=== PATIENT | female | born 1960 | race Caucasian/White ===

== ENCOUNTER 2019-06-14 13:32 | Outpatient (CLI) | payer OTHER, SELFPAY ==
--- NOTE | ~2019-06-14 | MM_ITS ---
EXAMINATION: MM scrn karina implant BI w neida HISTORY: Screening mammogram TECHNIQUE: Craniocaudal and mediolateral oblique 3-D tomosynthesis images with implant displacement a nd synthetic 2-D images were generated. Craniocaudal and mediolateral oblique views of the breasts wi thout implant displacement were obtained using full field digital mammography. CAD analysis was submi tted and interpreted. COMPARISON: No prior mammogram is available for comparison at this institution. BREAST PARENCHYMAL COMPOSITION: There are scattered areas of fibroglandular density. FINDINGS: Status post bilateral augmentation mammoplasty. Status post right partial mastectomy, with surgical clips in the upper outer quadrant of the right br east. There is no evidence of suspicious mass, calcification, or architectural distortion to suggest malig fadia in either breast. There has been no suspicious interval change. Occasional benign calcification s. IMPRESSION: 1. No mammographic evidence of malignancy. 2. Recommend routine screening mammography in one year. BI-RADS Category 2: Benign finding(s). Reviewed, dictated and finalized at location A. ORK ANALYST
--- NOTE | ~2019-06-14 | US_ITS ---
EXAMINATION: US pelvic complete w TV DATE: 06/14/2019 15:14 INDICATION: Postmenopausal bleeding TECHNIQUE: Multiple transabdominal and endovaginal sonographic images of the pelvis were obtained. COMPARISON: None. FINDINGS: The uterus measures 4.2 x 2.1 x 4.5 cm. The endometrial complex measures 2 mm. The ovaries are not visualized however no adnexal abnormality is seen.There is no free fluid in the pelvis. IMPRESSION: 1. No sonographic correlate for the patient's symptoms. Reviewed, dictated and finalized at location A. ESCENT SPECIALIST
== END 2019-06-14 13:33 | disposition home or self-care (01) ==
PROVIDERS: PCP Family Medicine; Visit Provider Nurse Practitioner
DX: Z12.31 Encounter for screening mammogram for malignant neoplasm of breast (principal); N95.0 Postmenopausal bleeding
CPT/HCPCS: 76830; 76856; 77063; 77067

== ENCOUNTER 2020-11-12 16:22 | Outpatient (CLI) | payer OTHER, SELFPAY ==
--- NOTE | ~2020-11-12 | MM_ITS ---
EXAMINATION: MM scrn karina implant BI w neida HISTORY: Screening mammogram TECHNIQUE: Craniocaudal and mediolateral oblique 3-D tomosynthesis images with implant displacement a nd synthetic 2-D images were generated. Craniocaudal and mediolateral oblique views of the breasts wi thout implant displacement were obtained using full field digital mammography. CAD analysis was submi tted and interpreted. COMPARISON: 06/14/2019, 10/30/2017, 12/24/2015 BREAST PARENCHYMAL COMPOSITION: There are scattered areas of fibroglandular density. FINDINGS: Lumpectomy changes are noted in the upper outer quadrant of the right breast. There is no e vidence of suspicious mass, calcification, or architectural distortion to suggest malignancy in eithe r breast. There has been no suspicious interval change. IMPRESSION: 1. No mammographic evidence of malignancy. 2. Recommend routine screening mammography in one year. BI-RADS Category 2: Benign finding(s). Reviewed, dictated and finalized at location A.
== END 2020-11-12 16:23 | disposition home or self-care (01) ==
LOC: ANHIMG 16:24
PROVIDERS: PCP Family Medicine; Visit Provider Nurse Practitioner
DX: Z12.31 Encounter for screening mammogram for malignant neoplasm of breast (principal)
CPT/HCPCS: 77063; 77067

== ENCOUNTER 2021-03-01 15:37 | Outpatient (CLI) | payer OTHER, SELFPAY ==
--- NOTE | ~2021-03-01 | XR_ITS ---
XR chest 2V DATE: 03/01/2021 16:21 INDICATION: Cough for 6 months. History of breast cancer. TECHNIQUE: PA and lateral views COMPARISON: 05/12/2015 2 view chest 12/2018 CT chest abdomen pelvis FINDINGS: Surgical clips overlie the right axillary area consistent with axillary node dissection. Di minished size of right compared to left breast shadow consistent with right partial mastectomy. Normal heart size. No hilar or mediastinal enlargement. No pulmonary infiltrate or consolidation, pleural effusion or pulmonary vascular congestion or pneumo thorax. Prominent degenerative spurring of the lumbar spine. No suspicious osteolytic or osteoblastic lesions are evident. There is osteopenia. IMPRESSION: Status post right partial mastectomy and axillary node dissection No active cardiopulmonary disease or significant change since 05/12/2015 Reviewed, dictated and finalized at location A.
== END 2021-03-01 15:38 | disposition home or self-care (01) ==
LOC: ANHIMG 15:42
PROVIDERS: PCP Family Medicine; Visit Provider Physician Assistant
DX: R05.9 Cough, unspecified (principal)
CPT/HCPCS: 71046

== ENCOUNTER 2021-09-24 18:50 | Emergency (ER) | payer OTHER, SELFPAY ==
--- NOTE | 2021-09-24 18:56 | ED.DENTAL ---
HPI - Dental/Oral General Chief complaint: Dental/Oral Stated complaint: tooth pain Time Seen by Provider: 09/24/21 18:56 Source: patient Mode of arrival: ambulatory Limitations: no limitations History of Present Illness HPI Narrative: 61-year-old female presents with right lower dental pain since yesterday. Called her dental office today and it is closed for the holiday. Would like to get started on any antibiotic. Denies fever chills no other complaints today. All systems reviewed and negative except as noted above. Related Data Allergies Allergy/AdvReac Type Severity Reaction Status Date / Time No Known Allergies Allergy Verified 03/01/21 14:49 Review of Systems Review of Systems: CONSTITUTIONAL: Denies fever, chills, or sweats. EYES: Denies visual changes, redness, or discharge. ENT: Denies rhinorrhea, congestion, sore throat, or otalgia. Reports right lower dental pain. CARDIOVASCULAR: Denies chest pain, palpitations, or edema. RESPIRATORY: Denies cough or dyspnea. GASTROINTESTINAL: Denies abdominal pain, nausea, vomiting, or diarrhea. GENITOURINARY: Denies dysuria or hematuria. SKIN: Denies rash or itching. MUSCULOSKELETAL: Denies back pain, joint pain, or myalgia. NEUROLOGIC: Denies headache, numbness, or weakness. PSYCHIATRIC: Denies anxiety or depression. All other systems reviewed are negative, except as documented in HPI. [facility] Past Medical History Medical History Anxiety Fracture of right lower extremity History of breast cancer Hyperlipidemia, unspecified Normal colonoscopy (~2019) Surgical History Surgical History H/O breast augmentation H/O dilation and curettage H/O lumpectomy Hx of tonsillectomy S/P right knee arthroscopy Family History Family History Mother Family history of malignant neoplasm of uterus, Onset Age: 35 Father Family history of malignant neoplasm of esophagus Other Carcinoma of colon Cerebrovascular accident Family history of cardiovascular disease Family history of malignant neoplasm Family history of malignant neoplasm of breast Hypertension Social History Social History (Updated 03/01/21 @ 14:52 by Donna Allen CMA) Smoking packs per day: 1 Smoking cigarettes per day: 20.0 Years smoked: 37 Smoking pack-years: 37.00 Smoking status: Former smoker Second hand tobacco smoke exposure: No Smoking end date: 03/01/14 Alcohol intake: never Substance use: current Substance use type: marijuana Other substance usage details: edibles; 2-3xweek for back pain Comments At time of signature, agree with nursing past medical, surgical, social and family history. There is no relevant family history pertinent to the presenting complaint. Exam Narrative: GENERAL: This is a well-nourished, well-developed patient, in no apparent distress. HEAD: normocephalic, atraumatic. EYES: PERRL. Sclera clear/white. Vision is grossly intact. EARS: External ears normal NOSE: External nose normal MOUTH: Tenderness on palpation tooth #29. To the gum area there is a small white area concerning for a dental abscess. Tender on palpation. NECK: Neck supple, non-tender without lymphadenopathy, masses or thyromegaly. CARDIOVASCULAR: Regular rate and rhythm without murmurs, gallops, or rubs. RESPIRATORY: Clear to auscultation. Breath sounds equal bilaterally. No wheezes, rales, or rhonchi. SKIN: warm, Dry, intact with no suspicious lesions or rash, good texture and turgor. NEURO: awake, alert, and oriented to person, place and time. There were no obvious focal neurologic abnormalities. EXTREMITIES: Normal range of motion to all extremities. Course Course Level of Care: Express Care Visit Vital Signs Vital signs: Vital Signs Temperature 36.2 C L 09/24/21 18:57 Pulse Rate 109
[2021-09-24 18:57] VITALS: BP 121/80; PULSE 109; RESP 16; TEMP 36.2; O2SAT 99
== END 2021-09-24 19:15 | disposition home or self-care (01) ==
PROVIDERS: Emergency Provider Nurse Practitioner Family; PCP Family Medicine
DX: K04.7 Periapical abscess without sinus (principal); Z87.891 Personal history of nicotine dependence; F12.90 Cannabis use, unspecified, uncomplicated; E78.5 Hyperlipidemia, unspecified; Z85.3 Personal history of malignant neoplasm of breast
CPT/HCPCS: 99213; G0463

== ENCOUNTER 2022-12-13 11:49 | Outpatient (CLI) | payer OTHER, SELFPAY ==
[2022-12-13 12:13] LABS: Hematocrit 45.4 % (37.0-47.0); Mean Corpuscular Hemoglobin 29.5 pg (26-34); Mean Corpuscular Volume 89.4 fl (80-100); Mean Platelet Volume 9.3 fl (7.4-10.4); Platelet Count Result 274 k/mm3 (150-375); Red Blood Count 5.08 M/mm3 (4.2-5.4); Red Cell Distribution Width 13.8 % (11.5-14.5); White Blood Count 5.3 K/mm3 (4.5-10.0)
[2022-12-13 12:23] LABS: Alanine Aminotransferase 18 U/L (6-35); Albumin Level 4.1 g/dL (3.5-5.1); Alkaline Phosphatase 76 U/L (38-126); Anion Gap 3 mmol/L (8-16); Aspartate Amino Transferase 26 U/L (14-36); Bilirubin,Total 0.5 mg/dL (0.2-1.3); Blood Urea Nitrogen 11 mg/dL (7-17); Calcium 8.8 mg/dL (8.4-10.2); Carbon Dioxide 27 mmol/L (22-30); Chloride 105 mmol/L (98-107); Cholesterol 253 mg/dL (0-200); Estimated Glomerular Filt Rate > 60; Glucose 99 mg/dL (65-110); HDL Direct 45 mg/dL; Potassium 4.2 mmol/L (3.4-5.0); Sodium 135 mmol/L (137-145); Triglycerides 281 mg/dL (<150)
[2022-12-13 12:34] LABS: LDL Cholesterol Direct 122 mg/dL
[2022-12-13 13:20] LABS: Free T4 Free Thyroxine 1.11 ng/mL (0.78-2.19)
[2022-12-16 23:29] LABS: Vitamin D 1,25 (OH)2 Total 24 pg/mL (18-72); Vitamin D2 1,25 (OH)2 <8 pg/mL; Vitamin D3 1,25 (OH)2 24 pg/mL
== END 2022-12-13 11:50 | disposition home or self-care (01) ==
LOC: ANHLAB 11:50
PROVIDERS: PCP Family Medicine; Visit Provider Physician Assistant
DX: R53.83 Other fatigue (principal); E78.5 Hyperlipidemia, unspecified; Z13.220 Encounter for screening for lipoid disorders; D64.9 Anemia, unspecified; Z13.1 Encounter for screening for diabetes mellitus; E55.9 Vitamin D deficiency, unspecified
CPT/HCPCS: 36415; 80053; 80061; 82652; 84439; 84443; 85027

== ENCOUNTER 2022-12-15 14:40 | Outpatient (CLI) | payer OTHER, SELFPAY ==
--- NOTE | ~2022-12-15 | CT_ITS ---
EXAMINATION: CT brain wo con DATE: 12/15/2022 14:54 INDICATION: R51.9 - Headache, unspecified . TECHNIQUE: Computed tomography (CT) of the head was performed without intravenous contrast. The mA wa s adjusted according to patient size. Iterative reconstruction technique was employed. The dose-lengt h product was 681.00 mGy-cm. COMPARISON: 05/12/2015. FINDINGS: No acute intracranial hemorrhage or extra-axial fluid collection. No hydrocephalus, mass, or herniation. No acute ischemic infarct. Unremarkable dural venous sinus attenuation. No acute osseous abnormality. The aerated spaces are clear. Mild atrophy and chronic white matter change. Atherosclerotic intracranial calcification. IMPRESSION: No acute intracranial process. Reviewed, dictated and finalized at location K.
== END 2022-12-15 14:41 | disposition home or self-care (01) ==
PROVIDERS: PCP Family Medicine; Visit Provider Physician Assistant
DX: R51.9 Headache, unspecified (principal); R41.3 Other amnesia
CPT/HCPCS: 70450

== ENCOUNTER 2023-08-14 14:45 | Outpatient (CLI) | payer OTHER, SELFPAY ==
--- NOTE | ~2023-08-14 | MM_ITS ---
EXAMINATION: MM scrn karina implant BI w neida HISTORY: Screening mammogram TECHNIQUE: Craniocaudal and mediolateral oblique 3-D tomosynthesis images with implant displacement a nd synthetic 2-D images were generated. Craniocaudal and mediolateral oblique views of the breasts wi thout implant displacement were obtained using full field digital mammography. CAD analysis was submi tted and interpreted. COMPARISON: Comparison to multiple prior studies sequentially, with oldest reviewed study dated 06/2017. BREAST PARENCHYMAL COMPOSITION: Not dense: There are scattered areas of fibroglandular density. FINDINGS: There is no evidence of suspicious mass, calcification, or architectural distortion to sugg est malignancy in either breast. There has been no suspicious interval change. IMPRESSION: 1. No mammographic evidence of malignancy. 2. Recommend routine screening mammography in one year. BI-RADS Category 1: Negative Reviewed, dictated and finalized at location B.
== END 2023-08-14 14:46 | disposition home or self-care (01) ==
PROVIDERS: PCP Family Medicine; Visit Provider Nurse Practitioner
DX: Z12.31 Encounter for screening mammogram for malignant neoplasm of breast (principal)
CPT/HCPCS: 77063; 77067

== ENCOUNTER 2023-11-09 10:06 | Outpatient (CLI) | payer OTHER, SELFPAY ==
--- NOTE | ~2023-11-09 | XR_ITS ---
Right Knee Technique: AP, lateral, and sunrise views were obtained. Clinical History: Pain Findings: No fracture or dislocation is seen. Osseous alignment is anatomic. There is mild to moderat e tricompartmental degenerative spurring. There is probable mild narrowing of the patellofemoral comp artment.. Chondrocalcinosis of the menisci noted. No joint effusion is seen. Impression: Moderate tricompartmental degenerative change with chondrocalcinosis of the menisci. Reviewed, dictated and finalized at location M. Impression: Moderate tricompartmental degenerative change with chondrocalcinosis of the men isci.
--- NOTE | ~2023-11-09 | XR_ITS ---
Left Knee Technique: AP, lateral, and sunrise views were obtained. Clinical History: Pain Findings: No fracture or dislocation is seen. Osseous alignment is anatomic. There is mild medial anai nt line spurring. Soft tissues are unremarkable. No joint effusion is seen. Impression: Mild medial joint line spurring. Reviewed, dictated and finalized at location . Impression: Mild medial joint line spurring.
== END 2023-11-09 10:07 | disposition home or self-care (01) ==
PROVIDERS: PCP Family Medicine; Visit Provider Family Medicine
DX: M25.562 Pain in left knee (principal); M17.11 Unilateral primary osteoarthritis, right knee
CPT/HCPCS: 73564

== ENCOUNTER 2024-02-08 09:56 | Outpatient (CLI) | payer OTHER, SELFPAY ==
--- NOTE | ~2024-02-08 | MR_ITS ---
MRI of the left knee Clinical history: Instability Technique: Coronal proton density and proton density-weighted images, sagittal proton-density and T2 fat-sat images, and axial proton-density fat-saturated images were acquired. Findings: Anterior and posterior cruciate ligaments are intact. Medial collateral ligament and the la teral collateral ligament complex are intact. Popliteus tendon is intact. No definite medial or lateral meniscal tear seen. There is probable intrasubstance degenerative signa l in the medial meniscus. There is focal high-grade chondromalacia at the patellar apex to medial facet. There is a mild latera l compartment chondromalacia. There is probable chondral delamination injury at the medial femoral co ndyle. Small tricompartmental osteophytes are present. Extensor mechanism is intact. There is minimal joint effusion. No Jacobs's cyst. Impression: Mild tricompartmental degenerative change, as above. Reviewed, dictated and finalized at [facility]. Impression: Mild tricompartmental degenerative change, as above.
--- NOTE | ~2024-02-08 | XR_ITS ---
3 VIEWS THORACIC SPINE Ordering provider: Sho Pulliam, MARILU History: . M54.9 - Dorsalgia, unspecified NON INJ WITH LT SIDE WORSE . Comparison: None. FINDINGS: VERTEBRAL BODIES: Normal height and alignment. No visible fracture or subluxation. Degenerative thorne es. DISK SPACES: Normal. SOFT TISSUES: Normal. IMPRESSION: No acute osseous abnormality of the thoracic spine. Reviewed, dictated and finalized at location A.
[2024-02-08 11:02] LABS: Alanine Aminotransferase 13 U/L (6-35); Alkaline Phosphatase 73 U/L (38-126); Anion Gap 6 mmol/L (4-12); Aspartate Amino Transferase 22 U/L (14-36); Bilirubin,Total 0.6 mg/dL (0.2-1.3); Blood Urea Nitrogen 11 mg/dL (7-17); Calcium 8.9 mg/dL (8.4-10.2); Carbon Dioxide 29 mmol/L (22-30); Chloride 104 mmol/L (98-107); Cholesterol 243 mg/dL (0-200); Estimated Glomerular Filt Rate 56; Glucose 91 mg/dL (65-110); HDL Direct 48 mg/dL; Potassium 3.8 mmol/L (3.4-5.0); Sodium 139 mmol/L (137-145); Triglycerides 172 mg/dL (<150)
[2024-02-08 11:13] LABS: LDL Cholesterol Direct 125 mg/dL
== END 2024-02-08 09:57 | disposition home or self-care (01) ==
PROVIDERS: PCP Family Medicine; Visit Provider Orthopaedic Surgery
DX: M23.52 Chronic instability of knee, left knee (principal); M54.9 Dorsalgia, unspecified; E78.2 Mixed hyperlipidemia; M17.12 Unilateral primary osteoarthritis, left knee
CPT/HCPCS: 36415; 72072; 73721; 80053; 80061

== ENCOUNTER 2024-10-21 00:50 | Day surgery (SDC) | payer MEDICARE, MEDICAID, SELFPAY ==
[2024-10-04 13:31] VITALS: BMI 25.9
[2024-10-21 09:25] VITALS: BP 117/65; PULSE 102; RESP 16; TEMP 36.6; O2SAT 100; BMI 25.9
[2024-10-21] MEDS: SIMETHICONE ORAL SUSPENSION 20 MG/0.3 ML 30 ML BOTTLE 1.8 ML PO (09:30)
--- NOTE | 2024-10-21 09:47 | WPDANESEPPF ---
Anes - Initial Pre Proc Eval Procedure: Operation Date: 10/21/24 11:00 Proposed Procedures p Colonoscopy - Cleve Martin MD s Esophagogastroduodenoscopy - Cleve Martin MD Date/Time: 10/21/24 09:47 Surgeon: Cleve Martin MD Pre Op Diagnosis: Other fecal abnormalities Patient Data Age: 64 Gender: F Height: 1.73 m Weight: 77.3 kg Last Vital Signs Temp 36.6 C 10/21/24 09:25 Pulse 102 H 10/21/24 09:25 Resp 16 10/21/24 09:25 BP 117/65 10/21/24 09:25 Pulse Ox 100 10/21/24 09:25 O2 Del Method Room Air 10/21/24 09:25 Allergies Allergy/AdvReac Type Severity Reaction Status Date / Time anesthesia AdvReac Mild Vomiting Uncoded 10/21/24 09:34 Home Medications ?Medication ?Instructions ?Recorded ?Confirmed ?Type trazodone 100 mg tablet 200 mg (2 x 100 mg) PO QHS PRN 07/01/24 10/04/24 Rx insomnia #60 tabs Patient hx anesthesia problems: none Family hx anesthesia problems: none Results Review: All pre-operative results and documents have been reviewed as part of the pre-operative evaluation. [facility] Past Medical History Medical History (Updated 10/19/24 @ 12:58 by Pierce Duenas DO) Arthritis Depression TIA (transient ischemic attack) Fracture of right lower extremity Normal colonoscopy (~2019) Anxiety History of breast cancer 2006 Hyperlipidemia, unspecified Surgical History Surgical History H/O breast augmentation Hx of tonsillectomy S/P right knee arthroscopy H/O dilation and curettage H/O lumpectomy Family History Family History Mother Family history of malignant neoplasm of uterus, Onset Age: 35 Arthritis Father Family history of malignant neoplasm of esophagus Other Family history of malignant neoplasm of breast Unknown Depression Heart disease Other Carcinoma of colon Cerebrovascular accident Family history of cardiovascular disease Family history of malignant neoplasm Hypertension Social History Social History Smoking packs per day: 2 Smoking cigarettes per day: 40.0 Years smoked: 37 Smoking pack-years: 74.00 Smoking status: Current every day smoker Tobacco type: e-cigarettes/vaping Second hand tobacco smoke exposure: No Smoking end date: 03/01/12 Additional smoking assessment comments: Quit cigarettes 2011 Alcohol intake: never Substance use: current Substance use type: marijuana Other substance usage details: edibles; 2-3xweek for back pain Lack of Transportation: No Lack of Food: Never True Current Housing: I Have Housing Concerned About Future Housing: No Difficulty Paying Gas/Electric Bills: No Difficulty Paying for Meds: No Currently Unemployed: No Education: Master's Degree or Higher Living arrangements: with family Occupation/Education: occupation 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 Informed Consent: The patient's anesthetic plan and its attendant risks and benefits were discussed with the patient/family/POA. Questions were solicited and answers provided to the satisfaction of the patient/family/POA.
[2024-10-21] MEDS: LACTATED RINGERS 1,000 ML 150 ML IV CONT (09:50)
--- NOTE | 2024-10-21 10:24 | P.HP_ITS ---
H&P: HPI History of Present Illness Date/Time: 10/21/24 10:24 Chief Complaint: GERD-rectal bleeding Narrative: The patient suffered from intermittent heartburn episodes, and has a family history of esophageal cancer in her. She is referred for EGD. In addition, 2 months ago she had an episode of bright red blood per rectum. Her last colonoscopy was more than 10 years ago she is also referred for colonoscopy. Review of Systems Review of Systems: All systems reviewed & are unremarkable except as noted in HPI and below [facility] Past Medical History Medical History (Updated 10/21/24 @ 10:25 by Cleve Martin MD) Arthritis Depression TIA (transient ischemic attack) Fracture of right lower extremity Normal colonoscopy (~2019) Anxiety History of breast cancer 2006 Hyperlipidemia, unspecified Surgical History Surgical History H/O breast augmentation Hx of tonsillectomy S/P right knee arthroscopy H/O dilation and curettage H/O lumpectomy Family History Family History Mother Family history of malignant neoplasm of uterus, Onset Age: 35 Arthritis Father Family history of malignant neoplasm of esophagus Other Family history of malignant neoplasm of breast Unknown Depression Heart disease Other Carcinoma of colon Cerebrovascular accident Family history of cardiovascular disease Family history of malignant neoplasm Hypertension Social History Social History Smoking packs per day: 2 Smoking cigarettes per day: 40.0 Years smoked: 37 Smoking pack-years: 74.00 Smoking status: Current every day smoker Tobacco type: e-cigarettes/vaping Second hand tobacco smoke exposure: No Smoking end date: 03/01/12 Additional smoking assessment comments: Quit cigarettes 2012 Alcohol intake: never Substance use: current Substance use type: marijuana Other substance usage details: edibles; 2-3xweek for back pain Lack of Transportation: No Lack of Food: Never True Current Housing: I Have Housing Concerned About Future Housing: No Difficulty Paying Gas/Electric Bills: No Difficulty Paying for Meds: No Currently Unemployed: No Education: Master's Degree or Higher Living arrangements: with family Occupation/Education: occupation 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 occupation/education comments: Self Employed Spiritual care concerns: No Agree to blood products: Yes Meds Home Medications and Allergies Home Medications ?Medication ?Instructions ?Recorded ?Confirmed ?Type trazodone 100 mg tablet 200 mg (2 x 100 mg) PO QHS PRN 07/01/24 10/04/24 Rx insomnia #60 tabs Allergies Allergy/AdvReac Type Severity Reaction Status Date / Time anesthesia AdvReac Mild Vomiting Uncoded 10/21/24 09:34 Vital Signs Vital Signs - 24 hr 10/21/24 09:25 Temperature 97.9 F Pulse Rate 102 H Respiratory Rate 16 Blood Pressure 117/65 Pulse Oximetry 100 Oxygen Delivery Room Air Exam Const: General: cooperative and healthy appearing Resp: Effort & Inspection: normal respiratory effort and able to speak in complete sentences Auscultation: clear to auscultation bilaterally Cardio: Rate: regular rate Rhythm: regular rhythm GI: Inspection: normal to inspection GI Palp: No No hepatosplenomegaly pres ent Auscultation: normal bowel sounds Rectal Exam: deferred Skin: General skin exam: normal color Psych: Appearance: grossly normal Mental Status: mental status grossly normal Assessment and Plan Assessment and plan (1) Bright red rectal bleeding: Code(s): K62.5 - Hemorrhage of anus and rectum Status: Acute Assessment and Plan: The patient is deemed a good candidate for the procedures. Consent signed. Will proceed.
--- NOTE | 2024-10-21 10:46 | S_PTH ---
PATIENT: Yun Garcia LOC: [facility] Kitchen#:[id number] AGE/SX: 64/F ROOM: RE10/21/[address]: Cleve Martin MD : 1960 BED: DIS: 10/21/2024 SPEC #: [id number] RECD: 10/21/24 13:21 STATUS: AMANDA RESpencer #: [id number] SEVERIANO: 10/21/24 10:[address]: Cleve Martin DEPT: [facility] Surgical RECD BY: Susan Perez ENTERED: 10/21/24 13:22 SP TYPE: Surgical OTHR DR: Debra BrownMD Tissues: A - Gastric Biopsy B - Gastric Biopsy C - Colon Polypectomy D - Colon Polypectomy Procedures: Hematoxylin and Eosin Stain Gross and Microscopic Level 4
--- NOTE | 2024-10-21 10:49 | SUR.OPER ---
EGD start 1039 end 1044, Colonoscopy start 104
[2024-10-21 11:13] VITALS: BP 101/61; PULSE 77; RESP 20; O2SAT 99
[2024-10-21 11:23] VITALS: BP 108/87; PULSE 81; RESP 21; O2SAT 99
[2024-10-21 11:33] VITALS: BP 109/78; PULSE 83; RESP 20; O2SAT 100
== END 2024-10-21 11:55 | disposition home or self-care (01) ==
PROVIDERS: PCP Family Medicine; Referring Provider Obstetrics & Gynecology Gynecology; Visit Provider Internal Medicine Gastroenterology
PROC: 0DJD8ZZ Inspection of Lower Intestinal Tract, Via Natural or Artificial Opening Endoscopic (ICD-10-PCS; CPT 45378; principal; 2024-10-21 11:00)
PROC: 0DJ08ZZ Inspection of Upper Intestinal Tract, Via Natural or Artificial Opening Endoscopic (ICD-10-PCS; CPT 45385; 2024-10-21 11:00)
DX: K62.5 Hemorrhage of anus and rectum (principal); D12.2 Benign neoplasm of ascending colon; D12.3 Benign neoplasm of transverse colon; K57.30 Diverticulosis of large intestine without perforation or abscess without bleeding; K21.00 Gastro-esophageal reflux disease with esophagitis, without bleeding; K29.30 Chronic superficial gastritis without bleeding; K44.9 Diaphragmatic hernia without obstruction or gangrene; F17.290 Nicotine dependence, other tobacco product, uncomplicated; F12.90 Cannabis use, unspecified, uncomplicated
CPT/HCPCS: 45385; 43239; 88305; J2003; J2704; J7120

== ENCOUNTER 2025-02-19 14:55 | Outpatient (CLI) | payer MEDICARE, MEDICAID, SELFPAY ==
--- NOTE | ~2025-02-19 | MM_ITS ---
EXAMINATION: MM scrn karina implant BI w neida INDICATION: Asymptomatic, referred for screening mammogram COMPARISON: 08/14/2023 through 12/24/2015 TECHNIQUE: Digital Breast Tomosynthesis CC, MLO, and implant displaced CC and MLO views of Both breasts were obtained with computer-aided detection to assist in interpretation of the study. FINDINGS: There are scattered areas of fibroglandular density. Bilateral breast Retropectoral Saline implants in place appears intact. There is an asymmetry seen on the MLOID view in the Superior right breast at middle third. Additional an asymmetry seen on the CCID view in the Lateral right breast at posterior third. There is an asymmetry seen on the MLOID view in the Superior left breast at posterior third. No other focal dominant mass, architectural distortion, or suspicious microcalcifications are identified. IMPRESSION: 1. Bilateral breast asymmetries. 2. Both breasts Retropectoral Saline implants appears intact. RECOMMENDATION: Diagnostic bilateral mammography with appropriate spot compression views and correlative bilateral breast ultrasound if necessary. BI-RADS Category 0: Incomplete: Needs additional imaging evaluation. Reviewed, dictated and finalized at location B. IMPRESSION: 1. Bilateral breast asymmetries. 2. Both breasts Retropectoral Saline implants appears intact. RECOMMENDATION: Diagnostic bilateral mammography with appropriate spot compression views and co rrelative bilateral breast ultrasound if necessary. BI-RADS Category 0: Incomplete: Needs additional imaging evaluation.
--- OUTSIDE RECORDS SUMMARY | 2025-02-19 19:15 | XMS_ITS | Clinical Summary ---
Author Organization [facility] Address [facility] [place] [address] Care Team Providers Care Sewer Contractor Name Role Phone Debra Brown MD Primary Care Provider [phone] Carlos Fall MD Unavailable Allergies No known active allergies Medications ALPRAZolam 1 MG tablet Take 1 mg by mouth 3 (three) times daily as needed. 12/01/2017 Active citalopram 20 MG tablet Take 20 mg by mouth daily. 11/27/2017 Active aspirin 81 MG chewable tablet Chew 1 tablet (81 mg total) by mouth daily. 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 Family History Relation Status Comments Father (Age 67) Mother (Age 79) Social History Tobacco Use Types Packs/Day Years Used Date Smoking Tobacco: Former Cigarettes Q uit: 2013 Smokeless Tobacco: Never Alcohol Use Standard Drinks/Week Comments No 0 (1 standard drink = 0.6 oz pur e alcohol) Comments Unknown Sex and Gender Information Value Date Recorded Sex Assigned at Not on file Legal Sex Female 12:34 PM CDT Gender Identity Not on file Sexual Orientation Not on file Last Filed Vital Signs Vital Sign Reading Time Taken Comments Blood Pressure 110/70 11/28/2017 10:44 AM CDT Pulse 102 11/28/2017 10:44 AM CDT Temperature - - Respiratory Rate - - Oxygen Saturation - - Inhaled Oxygen Concentration - - Weight 63.5 kg (140 lb) 11/28/2017 10:44 AM CDT Height 172.7 cm (5' 8) 11/28/2017 10:44 AM CDT Body Mass Index 21.29 11/28/2017 10:44 AM CDT Plan of Treatment Health Maintenance Due Date Last Done Comments Colorectal Cancer Screening Colonoscopy (10 Years) 1959 Hepatitis C 1977 DTaP, Tdap and Td Vaccines ( 1 - Tdap) 1978 Mammogram Screening 1999 Pneumococcal Vaccine: 50+ Ye ars (1 of 1 - PCV) 2009 Zoster Vaccines (1 of 2) 2009 Dexa Scan (General) 2024 COVID-19 Vaccine (1 - 2024-2 6 season) 2024 Influenza Adult (#1) 2025 RSV Immunization or 60+ Years (1 - 1-dose 75+ series) 2034 Hepatitis A Vaccines Aged Out No long er eligible based on patient's age to complete this topic Meningococcal B Vaccine Aged Out No l onger eligible based on patient's age to complete this topic Meningococcal Vaccine Aged Out No nessa mario eligible based on patient's age to complete this topic RSV Immunizations Under 20 Months Aged Out No longer eligible based on patient's age to complete this topic Insurance [employer] Care Teams Sewer Contractor Relationship Specialty Start Date End Date Debra Brown MD PCP - General FAMILY PRACTICE 11/06/17 Carlos Fall MD [address] [address] Referring Physician VASCULAR SURGERY 11/06/17
--- OUTSIDE RECORDS SUMMARY | 2025-02-19 19:15 | XMS_ITS | Clinical Summary ---
Author Organization [facility] Address [address], [address] [address] Phone Care Team Providers Care Laboratory Engineer Name Role Phone Debra Brown MD Primary Care Provider [phone] Medications hyoscyamine (LEVSIN) 0.125 MG Tablet Take 1 Tab by mouth every 4 hours as needed for Cramping. 120 Tab 3 12/13/2018 Active Social History Tobacco Use Types Packs/Day Years Used Date Smoking Tobacco: Never Assessed Comments Unknown Sex and Gender Information Value Date Recorded Sex Assigned at Not on file Legal Sex Female 11:34 AM CDT Gender Identity Not on file Sexual Orientation Not on file Plan of Treatment Health Maintenance Due Date Last Done Comments Hepatitis C Virus (HCV) Screening 1960 TdaP Immunization 1959 Pap Smear 1980 Cervical Cancer Screening (CCS) 1989 HPV/Cotest 1989 Cologuard 2004 Immunochemical Fecal Occult Blood 2004 Pneumococcal Immunization (5 0+ years) (1 of 1 - PCV) 2009 Zoster Immunization (1 of 2) 2009 Colonoscopy 12/14/2023 12/13/2018 Colorectal Cancer Screening 12/14/2023 Influenza Immunization (#1) 2024 SARS-COV-2 Immunization (1 - 2023- season) 2024 Respiratory Syncytial Virus (RSV) Immunization (Adult) (1 - 1-dose 75+ series) 2034 Hepatitis B Immunization Aged Out No longer eligible based on patient's age to complete this topic Human Papillomavirus (HPV) Immunization Aged Out No longer eligible b ased on patient's age to complete this topic Meningococcal Immunization (ACWY) Aged Out No longer eligible based on patient's age to complete this topic Rotavirus Immunization Aged Out No lo nger eligible based on patient's age to complete this topic Procedures Procedure Name Priority Date/Time Associated Diagnosis Comments HM COLONOSCOPY Routine 12/13/2018 from Last 3 Months or Most Recently Relevant to Health Maintenance Results * HM COLONOSCOPY (12/13/2018) George Ames DO PROCEDURE/MINOR SURGICAL ORDERA BLES Final Result from Last 3 Months or Most Recently Relevant to Health Maintenance Insurance Care Teams Laboratory Engineer Relationship Specialty Start Date End Date Debra Brown MD [address] [place] [address] PCP - General Family Medicine 09/28/18
--- OUTSIDE RECORDS SUMMARY | 2025-02-19 19:15 | XMS_ITS | Clinical Summary ---
Author Organization [facility] Reply Address [address] [place] [address] Care Team Providers Care Exit Booth Agent Name Role Phone Debra Brown MD Primary Care Provider [phone] Source Comments [facility],non-owned Affiliates and Associated Physician Practices is amultiple site organization consisting of ambulatory clinics and hospital sitesin [place], [place], [place] and [place]. This disclosure is being madepursuant to the Care Everywhere program and may not contain all information available regarding this patient. Last updated 18.[facility] Reply Allergies No known active allergies Medications * Be aware that medications may not be up to date on this document. Alwaysverify current medications with the patient. ALPRAZolam (XANAX) 0.25 MG tablet Take 1 mg by mouth 02/04/2017 Active ALPRAZolam (XANAX) 1 MG tablet 10/22/2021 Active Social History Tobacco Use Types Packs/Day Years Used Date Smoking Tobacco: Never Smokeless Tobacco: Never Alcohol Use Standard Drinks/Week Comments No 0 (1 standard drink = 0.6 oz pur e alcohol) Comments Unknown Sex and Gender Information Value Date Recorded Sex Assigned at Not on file Legal Sex Female 5:25 PM NEWS INTERN Gender Identity Not on file Sexual Orientation Not on file Last Filed Vital Signs Vital Sign Reading Time Taken Comments Blood Pressure 120/75 11/05/2021 1:15 PM CDT Pulse 102 11/05/2021 1:15 PM CDT Temperature 36.5 C (97.7 F) 11/05/2021 1:15 PM CDT Respiratory Rate 13 02/05/2017 1:15 AM CDT Oxygen Saturation 99% 11/05/2021 1:15 PM CDT Inhaled Oxygen Concentration - - Weight 84.6 kg (186 lb 6.4 oz) 11/05/2021 1:15 P M CDT Height 172.7 cm (5' 8) 11/05/2021 1:15 PM CDT Body Mass Index 28.34 11/05/2021 1:15 PM CDT Plan of Treatment Health Maintenance Due Date Last Done Comments BONE DENSITY TESTING 1960 COLOGUARD (AGES 45-75) - COL ON CA SCREENING 1959 COLON MONITORING 1959 COLONOSCOPY - COLON CA SCREENING 1959 CT COLONOGRAPHY - COLON CA SCREENING 1959 Colorectal Cancer Screening 1959 FIT - COLON CA SCREENING 1959 FLEX SIG - COLON CA SCREENING 1959 LIPID TESTING 1959 MAMMOGRAM 1959 MEDICARE AWV 12 MONTHS 1959 DTAP/TDAP/TD VACCINES (1 - Tdap) 1978 PAP SMEAR 1980 PNEUMOCOCCAL VACCINE 50+ (1 of 1 - PCV) 2009 ZOSTER VACCINE (1 of 2) 2009 SCREENING FOR DIABETES 11/05/2021 02/04/2017 DEPRESSION SCREENING 05/01/2024 COVID-19 VACCINE (1 - 2023-2 5 season) 2024 INFLUENZA VACCINE (#1) 2024 Respiratory Syncytial Virus (RSV) Vaccine Pt: or over 60 yrs (1 - 1-dose 75+ series) 2034 HEPATITIS C SCREENING Completed 02/04/2017 HIV SCREENING Completed 02/04/2017 HEPATITIS B VACCINE Aged Out No longe r eligible based on patient's age to complete this topic HIB VACCINE Aged Out No longer eligi ble based on patient's age to complete this topic HPV VACCINE Aged Out No longer eligi ble based on patient's age to complete this topic MENINGOCOCCAL (Group B) VACC INE SHARED DECISION-MAKING Aged Out No longer eligibl e based on patient's age to complete this topic MENINGOCOCCAL GROUPS A/C/Y/W VACCINE Aged Out No longer eligible b ased on patient's age to complete this topic Procedures Procedure Name Priority Date/Time Associated Diagnosis Comments COMPREHENSIVE METABOLIC PANEL STAT 02/04/2017 10:25 PM CDT HIV-1 HIV-2 ANTIGEN/ANTIBODY Routine 02/04/2017 10:25 PM CDT HEPATITIS C AB SCREEN RFLX NAAT QUANT Routine 02/04/2017 10:25 PM CDT from Last 3 Months or Most Recently Relevant to Health Maintenance Results * (ABNORMAL) COMPREHENSIVE METABOLIC PANEL (02/04/2017 10:25 PM CDT) BUN 12 7 - 26 mg/dL [facility] Creatinine 1.0 0.6 - 1.2 mg/dL [facility] Sodium 140 136 - 145 mmol/L [facility] Potassium 3.4(L) 3.5 - 4.5 mmol/L [facility] Chloride 105 98 - 107 mmol/L [facility] CO2 22 22 - 29 mmol/L [facility] Glucose 99 70 - 115 mg/dL [facility] Calcium 9.0 8.4 - 10.2 mg/dL [facility] Protein Total 7.5 6.0 - 8.3 g/dL [facility] Albumin 3.5 3.4 - 5.0 g/dL [facility] Bilirubin Total 0.2 0.2 - 1.2 mg/dL [facility] Alkaline Phosphatase 62 40 - 150 Units/L [facility] ALT 14 0 - 55 Units/L [facility] AST 19 5 - 34 Units/L [facility] Anion Gap 16 8 - 18 [facility] BUN/Creatinine Ratio 12 7 - 23 [facility] Osmolality Calculated 290 270 - 300 mOsm/kg [facility] Albumin/Globulin Ratio 0.9(L) 1.1 - 2.3 [facility] eGFR 57(L) >60 mL/min/1.7 3 m2 [facility] Blood specimen (specimen) BLOOD SPECIMEN / Unknown 02/04/2017 10:25 PM CDT 02/04/2017 10:28 PM CDT us Weston Henson MD LAB - CHEMISTRY ORDERABLES F inal Result [address] [phone] * HIV-1 HIV-2 ANTIGEN/ANTIBODY (02/04/2017 10:25 PM CDT) Pathologist [facility] HIV Antigen/Antibod y 1 & 2 Non-reacti ve Non-react jaxon [facility] Comment: Neither HIV-1 p24 Antigen nor HIV-1/HIV-2 Antibodies are detected. Blood specimen (specimen) BLOOD SPECIMEN / Unknown 02/04/2017 10:25 PM CDT 02/04/2017 10:28 PM CDT Abdoul Christianson MD LAB - HEMATOLOGY ORDERABLES F inal Result Performing Organization Address [facility] Co de Phone Number [address] [phone] * HEPATITIS C AB SCREEN RFLX PCR QUANT (02/04/2017 10:25 PM CDT) Pathologist [facility] Hepatitis C Antibody Non-react jaxon Non-reac tive [facility] Comment: Hepatitis C Antibody screen indicates no serologic evidence of past or current infection with Hepatitis C Virus. Patients with unexplained liver disease who are immunocompromised or suspected of having acute Hepatitis C infection may benefit from Nucleic Acid Test ([facility]ENRY) for Hepatitis C Viral RNA to confirm Hepatitis C status. BLOOD SPECIMEN / Unknown 02/04/2017 10:25 PM CDT 02/04/2017 10:28 PM CDT us Abdoul Christianson MD LAB - CHEMISTRY ORDERABLES Fi nal Result Performing Organization Address [facility] Co de Phone Number [address] [phone] from Last 3 Months or Most Recently Relevant to Health Maintenance Insurance * Guarantor: Yun Garcia Account Type Relation to Patient Date of Phone Billing Address Personal/Family Self 1960 [address] [place] [address] [facility] MEDICARE MEDICAID - [place] SELF PAY NO INSURANCE Member Subscriber Plan / Payer (Ef fective for All Dates) Name:Yun Garcia [place] Member ID:Not on file Relation to Subscriber:Not on file Name:YUN GARCIA [place] Subscriber ID:Not on file (Home) Address: [address] [place] [address] Payer ID:Not on file Group ID:Not on file Type:Self Pay Address: [place], [place] Care Teams Exit Booth Agent Relationship Specialty Start Date End Date Debra Brown MD [address] [place] [address] PCP - General 02/04/17
--- OUTSIDE RECORDS SUMMARY | 2025-02-19 19:15 | XMS_ITS | Clinical Summary ---
Author Organization [facility] [place] Address [address] [place] [address] Phone Care Team Providers Care Spline Rolling Machine Job Setter Name Role Phone Debra Brown MD Primary Care Provider [phone] Allergies No known active allergies Medications CALCIUM PO Take 1,200 mg by mouth. Active VITAMIN B COMPLEX (SUPER B COMPLEX PO) Take by mouth. Active ERGOCALCIFEROL (VITAMIN D PO) Take by mouth. Active Active Problems Problem Noted Date Diagnosed Date Pain in joint, multiple sites 11/26/2008 IBS (irritable bowel syndrome) 11/25/2008 Depressive Disorder 11/25/2008 Breast cancer 11/25/2008 Overview (08/08/2012): 05/10/06 Stage IIa ( T1c N1 M0) IDC RIGHT breast ER 98% NV 14% HER2/mohsen - Ki67 51% S/p lumpectomy and SLND 2LNs+ Neoadjuvant AC x 4 followed by T x 4 01/30/07 radiation complete 02/07/07 TMX x 1 year 01/09/08 AROMASIN x 10 months (arthralgias) 11/26/08 Back to TMX! --- 12/08/08 Aromasin again! Assessment & Plan (08/08/2012 2:28 PM CDT): 6 years out mammo today Lost MORE weight but says she'sdone Off AI 2 years ROV 1 yaer with mammo Assessment & Plan (08/09/2011 11:40 AM CDT): 5 years out Mammo today Lost MORE weight 1 hour a day of working out adn eating to live AI QUIT in May. 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 Has arthritis b/l knees and back. Pt made aware. CT scan was negative. Family History Medical History Relation Name Comments Healthy Daughter 1 Healthy Daughter 2 Healthy Son Relation Name Status Comments Daughter 1 Alive Daughter 2 Alive Son Alive Social History Tobacco Use Types Packs/Day Years Used Date Smoking Tobacco: Every Day Cigarettes 1 30 Alcohol Use Standard Drinks/Week Comments No 0 (1 standard drink = 0.6 oz pur e alcohol) Comments No Sex and Gender Information Value Date Recorded Sex Assigned at Not on file Legal Sex Female 5:41 AM LINECASTING MACHINE KEYBOARD OPERATOR Gender Identity Not on file Sexual Orientation Not on file Occupation Industry Job Start Date Job End Date Not on file Not on file Not on file Not on file Not on file Not on file Not on file Not on file Last Filed Vital Signs Vital Sign Reading Time Taken Comments Blood Pressure 110/77 08/08/2012 2:15 PM CDT Pulse 91 08/08/2012 2:15 PM CDT Temperature 37.3 C (99.1 F) 08/08/2012 2:15 PM CDT Respiratory Rate 16 08/08/2012 2:15 PM CDT Oxygen Saturation - - Inhaled Oxygen Concentration - - Weight 59 kg (130 lb) 08/08/2012 2:15 PM CDT Height 175.3 cm (5' 9) 08/08/2012 2:15 PM CDT Body Mass Index 19.2 08/08/2012 2:15 PM CDT Plan of Treatment Health Maintenance Due Date Last Done Comments DTAP/TDAP/TD VACCINES (1 - Tdap) 1978 PNEUMOCOCCAL VACCINE 50+ YEA RS (1 of 2 - PCV) 1978 COLORECTAL SCREENING 2004 Colorectal Cancer Screening 2004 FIT-DNA Q 3 years 2004 FIT/FOBT Q 1 year 2004 Flex Sig/CT Colonography Q 5 years 2004 ZOSTER VACCINE (1 of 2) 2009 BREAST CANCER SCREENING 08/08/2013 08/09/19 13, 08/09/2011, 08/12/2009 OSTEOPOROSIS SCREENING 2024 INFLUENZA VACCINE (#1) 2024 RSV VACCINE (60+ or ) (1 - 1-dose 75+ series) 2034 Procedures Procedure Name Priority Date/Time Associated Diagnosis Comments MAMMO SCREEN IMPL BILAT W OR WO CAD Routine 08/08/2012 2:01 PM CDT Breast cancer (CMS/[facility]) from Last 3 Months or Most Recently Relevant to Health Maintenance Results * MAMMO DIGITAL SCREEN IMPLANTS BILAT (08/08/2012 2:01 PM CDT) Anatomical Region Laterality Modality Breast Bilateral Mammography 08/08/2012 2:00 PM CDT Narrative 08/10/2012 10:30 AM CDT BILATERAL SCREENING FULL FIELD DIGITAL MAMMOGRAM WITH CAD, 08/08/2012 HISTORY: Personal history of breast cancer with prior right conservation therapy. TECHNIQUE: Screening mammography of both breasts were performed using full field digital mammography. Comparison is made with prior studies dated July 2011, July 2010 and June 2008. BREAST COMPOSITION: Heterogeneously dense, which lowers the sensitivity of mammography. FINDINGS: Mammographic changes consistent with breast conservation therapy on the right are noted. No new dominant masses, suspicious calcifications, parenchymal asymmetry or areas of architectural distortion are identified in either breast. There are subpectoral saline implants. Since the prior study, there has been no significant change. The computer aided detection system was utilized. OVERALL ASSESSMENT: BI-RADS Category: 2. Benign finding(s). RECOMMENDATION: Annual mammography is recommended. Stable postoperative changes. Dictated from [facility] Procedure Note Palma Pereira MD - 08/10/2012 BILATERAL SCREENING FULL FIELD DIGITAL MAMMOGRAM WITH CAD, 08/08/2012 HISTORY: Personal history of breast cancer with prior right conservation therapy. TECHNIQUE: Screening mammography of both breasts were performed using full field digital mammography. Comparison is made with prior studies dated July 2011, July 2010 and June 2008. BREAST COMPOSITION: Heterogeneously dense, which lowers the sensitivity of mammography. FINDINGS: Mammographic changes consistent with breast conservation therapy on the right are noted. No new dominant masses, suspicious calcifications, parenchymal asymmetry or areas of architectural distortion are identified in either breast. There are subpectoral saline implants. Since the prior study, there has been no significant change. The computer aided detection system was utilized. OVERALL ASSESSMENT: BI-RADS Category: 2. Benign finding(s). RECOMMENDATION: Annual mammography is recommended. Stable postoperative changes. Dictated from [facility] In[facility] Khalil Rosalba Carpio MD MAMMO ORDERABLES Final Resu lt from Last 3 Months or Most Recently Relevant to Health Maintenance Insurance [facility] BLUE ACCESS CHOICE Care Teams Spline Rolling Machine Job Setter Relationship Specialty Start Date End Date Debra Brown MD [address] [place] [address] PCP - General 06/02/08
--- OUTSIDE RECORDS SUMMARY | 2025-02-19 19:15 | XMS_ITS | Encounter Summary ---
Author Organization [employer] Address [address] [place] [address] Care Team Providers Care Business Unit Director Name Role Phone Debra Brown MD Primary Care Provider [phone] Encounter Details Date Type Department Care Team (Late st Contact Info) Description 11/26/2008 Outpatient Historical [facility], [address] Rosalba Carpio MD [address] [place] [address] [place] [id number] Malignant Neoplasm of Breast (Female), Unspecified Site (CMS/HCC) Social History Tobacco Use Types Packs/Day Years Used Date Smoking Tobacco: Every Day Cigarettes 1 30 Alcohol Use Standard Drinks/Week Comments No 0 (1 standard drink = 0.6 oz pur e alcohol) Comments No Sex and Gender Information Value Date Recorded Sex Assigned at Not on file Legal Sex Female 5:41 AM DIGITAL DESIGNER Gender Identity Not on file Sexual Orientation Not on file documented as of this encounter Plan of Treatment Not on file documented as of this encounter Visit Diagnoses Diagnosis Malignant neoplasm of breast (female), unspecified site documented in this encounter Care Teams Business Unit Director Relationship Specialty Start Date End Date Debra Brown MD [address] [place] [address] PCP - General 06/02/08 documented as of this encounter
== END 2025-02-19 14:56 | disposition home or self-care (01) ==
LOC: ANHFOHIMG 14:56
PROVIDERS: PCP Family Medicine; Visit Provider Obstetrics & Gynecology Gynecology
DX: Z12.31 Encounter for screening mammogram for malignant neoplasm of breast (principal); R92.8 Other abnormal and inconclusive findings on diagnostic imaging of breast
CPT/HCPCS: 77063; 77067

== ENCOUNTER 2025-03-13 12:39 | Outpatient (CLI) | payer MEDICARE, MEDICAID, SELFPAY ==
--- OUTSIDE RECORDS SUMMARY | 2025-03-13 13:11 | XMS_ITS | Clinical Summary ---
Author Organization [facility] [place] Address [address] [place] [address] Phone Care Team Providers Care Inspecting Engineer Name Role Phone Debra Brown MD Primary Care Provider Allergies No known active allergies Medications CALCIUM [...] N1 M0) IDC RIGHT breast ER 98% [place] 14% HER2/mohsen - Ki67 51% S/p lumpectomy [...] mammo Assessment & Plan (06/10/2010 11:16 AM BIN WORKER): 4 years out Lost 25 pounds by eating less and walks 31/2 miles on tredmill over an hour 7 days a week She feels great Mammogram in July Still on aromatase Inhibitor ROV next July with mammogram Assessment & Plan (05/25/2009 11:46 AM BIN WORKER): 3 yrs out from dx Mammogram coming [...] on file Legal Sex Female 5:41 AM BIN WORKER Gender Identity Not on file Sexual Orientation [...] Routine 08/08/2012 2:01 PM CDT Breast cancer (CMS/[facility]) from Last 3 Months or Most Recently [...] Most Recently Relevant to Health Maintenance Insurance [facility] BLUE ACCESS CHOICE Care Teams Inspecting Engineer Relationship Specialty Start Date End Date Debra Brown MD [address] [place] [address] PCP - General 06/02/08
--- OUTSIDE RECORDS SUMMARY | 2025-03-13 13:11 | XMS_ITS | Clinical Summary ---
Author Organization [facility] Address [address] [place] [address] Care Team Providers Care Tool Dresser Name Role Phone Debra Brown MD Primary Care Provider [phone] Source Comments [facility],non-owned Affiliates and Associated Physician Practices is amultiple site organization consisting of ambulatory clinics and hospital sitesin [place], [place], [place] and [place]. This disclosure is being madepursuant to the Care Everywhere program and may not contain all information available regarding this patient. Last updated 18.[facility] Allergies No known active allergies Medications * [...] on file Legal Sex Female 5:25 PM MELT HELPER Gender Identity Not on file Sexual Orientation [...] 1959 DTAP/TDAP/TD VACCINES (1 - Tdap) 1978 Cervical Cancer Screening 1980 PAP SMEAR 1980 PAP with HPV 1989 PNEUMOCOCCAL VACCINE 50+ (1 of 1 - PCV) 2009 ZOSTER VACCINE (1 of 2) 2009 SCREENING FOR DIABETES 11/05/2021 02/04/2017 DEPRESSION SCREENING 05/01/2024 COVID-19 VACCINE (1 - 2024-2 6 season) 2024 INFLUENZA VACCINE (#1) 2024 Respiratory [...] CDT) BUN 12 7 - 26 mg/dL [facility] Creatinine 1.0 0.6 - 1.2 mg/dL [facility] Sodium 140 136 - 145 mmol/L [facility] Potassium 3.4(L) 3.5 - 4.5 mmol/L [facility] Chloride 105 98 - 107 mmol/L [facility] CO2 22 22 - 29 mmol/L [facility] Glucose 99 70 - 115 mg/dL [facility] Calcium 9.0 8.4 - 10.2 mg/dL [facility] Protein Total 7.5 6.0 - 8.3 g/dL [facility] Albumin 3.5 3.4 - 5.0 g/dL [facility] Bilirubin Total 0.2 0.2 - 1.2 mg/dL [facility] Alkaline Phosphatase 62 40 - 150 Units/L [facility] ALT 14 0 - 55 Units/L [facility] AST 19 5 - 34 Units/L [facility] Anion Gap 16 8 - 18 [facility] BUN/Creatinine Ratio 12 7 - 23 [facility] Osmolality Calculated 290 270 - 300 mOsm/kg [facility] Albumin/Globulin Ratio 0.9(L) 1.1 - 2.3 [facility] eGFR 57(L) >60 mL/min/1.7 3 m2 [facility] Blood specimen (specimen) BLOOD SPECIMEN / Unknown 02/04/2017 10:25 PM CDT 02/04/2017 10:28 PM CDT us Weston Henson MD LAB - CHEMISTRY ORDERABLES F inal Result [address] [phone] * HIV-1 HIV-2 ANTIGEN/ANTIBODY (02/04/2017 10:25 PM CDT) Pathologist [facility] HIV Antigen/Antibod y 1 & 2 Non-reacti ve Non-react [facility] Comment: Neither HIV-1 p24 Antigen nor HIV-1/HIV-2 Antibodies are detected. Blood specimen (specimen) BLOOD SPECIMEN / Unknown 02/04/2017 10:25 PM CDT 02/04/2017 10:28 PM CDT Abdoul Christianson MD LAB - HEMATOLOGY ORDERABLES F inal Result Performing Organization Address [facility] Co de Phone Number [address] [phone] * HEPATITIS C AB SCREEN RFLX PCR QUANT (02/04/2017 10:25 PM CDT) [facility] Hepatitis C Antibody Non-react [facility] Comment: Hepatitis C Antibody screen indicates [...] ORDERABLES Fi nal Result Performing Organization Address [facility]/ZIP Co de Phone Number [address] [phone] from Last 3 Months or Most Recently Relevant to Health Maintenance Insurance [facility] MEDICARE MEDICAID - [place] SELF PAY NO INSURANCE Member Subscriber Plan / Payer (Ef fective for All Dates) Name:Jose Yun [place] Member ID:Not on file Relation to Subscriber:Not on file Name:YUN GARCIA [place] Subscriber ID:Not on file (Home) Address: [address] [place] [address] Payer ID:Not on file Group ID:Not on file Type:Self Pay Address: [place], [place] Care Teams Tool Dresser Relationship Specialty Start Date End Date Debra Brown MD [address] [place] [address] PCP - General 02/04/17
--- OUTSIDE RECORDS SUMMARY | 2025-03-13 13:11 | XMS_ITS | Clinical Summary ---
Author Organization [facility] Address Formerly [facility], [facility] [place] [address] Care Team Providers Care Nursing Education Consultant Name Role Phone Debra Brown MD Primary Care Provider [phone] Carlos Fall MD Unavailable Allergies No known [...] this topic Insurance [employer] Care Teams Nursing Education Consultant Relationship Specialty Start Date End Date Debra Brown MD PCP - General FAMILY PRACTICE 11/06/17 Carlos Fall MD [address] [address] Referring Physician VASCULAR SURGERY 11/06/17
--- OUTSIDE RECORDS SUMMARY | 2025-03-13 13:11 | XMS_ITS | Encounter Summary ---
Author Organization [facility] Address [address] [place] [address] Care Team Providers Care Floor Molder Name Role Phone Debra Brown MD Primary Care Provider [phone] Encounter Details Date Type Department Care Team (Late st Contact Info) Description 11/26/2008 Outpatient Historical [facility], [address] Rosalba Carpio MD [address] [place] [address] [place] [id number] Malignant Neoplasm of Breast (Female), Unspecified Site (CMS/HCC) Social History Tobacco Use Types Packs/Day Years Used Date Smoking Tobacco: Every Day Cigarettes 1 30 Alcohol Use Standard Drinks/Week Comments No 0 (1 standard drink = 0.6 oz pur e alcohol) Comments No Sex and Gender Information Value Date Recorded Sex Assigned at Not on file 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
--- OUTSIDE RECORDS SUMMARY | 2025-03-13 13:11 | XMS_ITS | Clinical Summary ---
Author Organization [facility] Address [address], [address] [address] Phone Care Team Providers Care Major Donor Coordinator Name Role Phone Debra Brown MD Primary Care Provider [phone] Medications hyoscyamine (LEVSIN) 0.125 MG Tablet Take [...] Relevant to Health Maintenance Insurance Care Teams Major Donor Coordinator Relationship Specialty Start Date End Date Debra Brown MD [address] [place] [address] PCP - General Family Medicine 09/28/18
[2025-03-13 13:51] LABS: Hematocrit 43.7 % (37.0-47.0); Hemoglobin 14.7 g/dL (12.0-15.0); Immature Granulocyte Percent A 0.3 % (0-0.5); Lymphocytes Absolute Auto 1.94 K/mm3 (0.9-3.2); Mean Corpuscular HGB Conc 33.6 g/dl (32-36); Mean Corpuscular Hemoglobin 30.0 pg (26-34); Mean Corpuscular Volume 89.2 fl (80-100); Nucleated Red Blood Cells Absolute Auto 0.000 K/mm3 (0.0-0.012); Nucleated Red Blood Cells Perc 0.0 % (0.0-0.2); Platelet Count Result 297 k/mm3 (150-375); Red Blood Count 4.90 M/mm3 (4.2-5.4); White Blood Count 7.1 K/mm3 (4.5-10.0)
[2025-03-13 14:13] LABS: Alanine Aminotransferase 14 U/L (6-35); Albumin Level 4.3 g/dL (3.5-5.1); Alkaline Phosphatase 69 U/L (38-126); Anion Gap 7 mmol/L (4-12); Aspartate Amino Transferase 25 U/L (14-36); Bilirubin,Total 0.5 mg/dL (0.2-1.3); Blood Urea Nitrogen 11 mg/dL (7-17); Calcium 9.2 mg/dL (8.4-10.2); Carbon Dioxide 25 mmol/L (22-30); Chloride 102 mmol/L (98-107); Cholesterol 260 mg/dL (0-200); Creatine Kinase 76 U/L (30-135); Estimated Glomerular Filt Rate 47; Glucose 98 mg/dL (65-110); HDL Direct 49 mg/dL; Potassium 4.7 mmol/L (3.4-5.0); Sodium 134 mmol/L (137-145); Total Protein 8.1 g/dL (6.3-8.2); Triglycerides 208 mg/dL (<150)
[2025-03-13 14:14] LABS: Iron 88 ug/dL (37-170)
[2025-03-13 14:25] LABS: Percent Iron Saturation 29 % (20-50)
[2025-03-13 14:33] LABS: Hemoglobin A1C 5.5 % (<5.7)
[2025-03-13 15:08] LABS: Vitamin B12 772.0 pg/mL (239-931)
[2025-03-13 16:56] LABS: Thyroid Stimulating Hormone Reflex 1.250 uIU/mL (0.465-4.68)
[2025-03-13 17:00] LABS: Ferritin 61.00 ng/mL (11.1-264)
== END 2025-03-13 12:40 | disposition home or self-care (01) ==
DX: R53.1 Weakness (principal); R19.4 Change in bowel habit; Z12.11 Encounter for screening for malignant neoplasm of colon; R22.1 Localized swelling, mass and lump, neck; D64.9 Anemia, unspecified; E78.5 Hyperlipidemia, unspecified; E55.9 Vitamin D deficiency, unspecified; Z13.1 Encounter for screening for diabetes mellitus; R53.83 Other fatigue
CPT/HCPCS: 36415; 80053; 80061; 82306; 82550; 82607; 82728; 83036; 83540; 83550; 84443; 85025

== ENCOUNTER 2025-04-02 13:15 | Outpatient (CLI) | payer MEDICARE, MEDICAID, SELFPAY ==
--- NOTE | ~2025-04-02 | MM_ITS ---
EXAMINATION: MM diagnostic mammography implant BI w neida HISTORY: Additional imaging. Right lumpectomy/partial mastectomy TECHNIQUE: Craniocaudal and mediolateral oblique 3-D tomosynthesis images were obtained and synthetic 2-D images were generated. CAD analysis was submitted and interpreted. COMPARISON: 2023, 2020, and 2019. BREAST PARENCHYMAL COMPOSITION: Not Dense: There are scattered areas of fibroglandular FINDINGS: There are retropectoral saline implants. The presence of implants limits the sensitivity of mammography. The findings questioned on the screening study do not persist with additional imaging. These are thought to have related to compression artifacts. There are no suspicious calcifications. No unexplained architectural distortion is seen. There are no skin or nipple abnormalities identified. There is no adenopathy seen on the images submitted. IMPRESSION: No mammographic evidence to suggest malignancy is seen. The patient may return to screening mammography as per ACR guidelines. BI-RADS 2 - Benign. Reviewed, dictated and finalized at location B. R COVERER
--- OUTSIDE RECORDS SUMMARY | 2025-04-02 14:29 | XMS_ITS | Clinical Summary ---
Author Organization [facility] Address [address], [address] [address] Phone Care Team Providers Care Plastics Sheet Finishing Press Operator Name Role Phone Debra Brown MD Primary Care Provider [phone] Medications hyoscyamine (LEVSIN) 0.125 MG Tablet Take [...] Relevant to Health Maintenance Insurance Care Teams Plastics Sheet Finishing Press Operator Relationship Specialty Start Date End Date Debra Brown MD [address] [place] [address] PCP - General Family Medicine 09/28/18
--- OUTSIDE RECORDS SUMMARY | 2025-04-02 14:29 | XMS_ITS | Clinical Summary ---
Author Organization [facility] Address [facility] [place] [address] Care Team Providers Care Prop Sawyer Name Role Phone Debra Brown MD Primary Care Provider [phone] Carlos Fall MD Unavailable Allergies No known [...] this topic Insurance [employer] Care Teams Prop Sawyer Relationship Specialty Start Date End Date Debra Brown MD PCP - General FAMILY PRACTICE 11/06/17 Carlos Fall MD [address] [address] Referring Physician VASCULAR SURGERY 11/06/17
--- OUTSIDE RECORDS SUMMARY | 2025-04-02 14:29 | XMS_ITS | Clinical Summary ---
Author Organization [facility] Address [address] [facility] [place] [address] Care Team Providers Care Community Service Officer Coordinator Name Role Phone Debra Brown MD Primary Care Provider [phone] Source Comments [facility],non-owned Affiliates and Associated Physician Practices is amultiple site organization consisting of ambulatory clinics and hospital sitesin [place], [place] and [place]. This disclosure is being madepursuant to the Care Everywhere program and may not contain all information available regarding this patient. 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2 - 1.2 mg/dL [facility] Alkaline Phosphatase 62 40 - 150 Units/L [facility] ALT 14 0 - 55 Units/L [facility] AST 19 5 - 34 Units/L [facility] Anion Gap 16 8 - 18 [facility] BUN/Creatinine Ratio 12 7 - 23 [facility] Osmolality Calculated 290 270 - 300 mOsm/kg [facility] Albumin/Globulin Ratio 0.9(L) 1.1 - 2.3 [facility] eGFR 57(L) >60 mL/min/1.7 3 m2 [facility] Blood specimen (specimen) BLOOD SPECIMEN / Unknown 02/04/2017 10:25 PM CDT 02/04/2017 10:28 PM CDT us Weston Henson MD LAB - CHEMISTRY ORDERABLES F inal Result [address] [phone] * HIV-1 HIV-2 ANTIGEN/ANTIBODY (02/04/2017 10:25 PM CDT) Pathologist [facility] HIV Antigen/Antibod y 1 & 2 Non-reacti ve Non-react [facility] Comment: Neither HIV-1 p24 Antigen nor HIV-1/HIV-2 Antibodies are detected. Blood specimen (specimen) BLOOD SPECIMEN / Unknown 02/04/2017 10:25 PM CDT 02/04/2017 10:28 PM CDT Abdoul Christianson MD LAB - HEMATOLOGY ORDERABLES F inal Result Performing Organization Address [facility] Co de Phone Number [address] [phone] * HEPATITIS C AB SCREEN RFLX PCR QUANT (02/04/2017 10:25 PM CDT) [facility] Comment: Hepatitis C Antibody screen indicates no [...] ORDERABLES Fi nal Result Performing Organization Address [facility]/ZIP Co de Phone Number [address] [phone] from Last 3 Months or Most Recently Relevant to Health Maintenance Insurance [facility] MEDICARE MEDICAID - [place] SELF PAY NO INSURANCE Member Subscriber Plan / Payer (Ef fective for All Dates) Name:Jose Yun [place] Member ID:Not on file Relation to Subscriber:Not on file Name:YUN GARCIA [place] Subscriber ID:Not on file (Home) Address: [address] [place] [address] Payer ID:Not on file Group ID:Not on file Type:Self Pay Address: [place], [place] Care Teams Community Service Officer Coordinator Relationship Specialty Start Date End Date Debra Brown MD [address] [place] [address] PCP - General 02/04/17
--- OUTSIDE RECORDS SUMMARY | 2025-04-02 14:29 | XMS_ITS | Clinical Summary ---
Author Organization [facility] Address [address] [place] [address] Phone Care Team Providers Care Drawing Machine Operator Name Role Phone Debra Brown MD [...] N1 M0) IDC RIGHT breast ER 98% SD 14% HER2/mohsen - Ki67 51% S/p lumpectomy [...] mammo Assessment & Plan (06/10/2010 11:16 AM STAINED GLASS JOINER): 4 years out Lost 25 pounds by eating less and walks 31/2 miles on tredmill over an hour 7 days a week She feels great Mammogram in July Still on aromatase Inhibitor ROV next July with mammogram Assessment & Plan (05/25/2009 11:46 AM STAINED GLASS JOINER): 3 yrs out from dx Mammogram coming [...] on file Legal 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 BLUE ACCESS CHOICE Care Teams Drawing Machine Operator Relationship Specialty Start Date End Date Debra Brown MD [address] [place] [address] PCP - General 06/02/08
--- OUTSIDE RECORDS SUMMARY | 2025-04-02 14:29 | XMS_ITS | Encounter Summary ---
[facility] Organization [facility] Address [address] [place] [address] Care Team Providers Care Jalousie Installer Name Role Phone Debra Brown MD Primary Care Provider Encounter Details Date Type Department Care Team (Late st Contact Info) Description 11/26/2008 Outpatient Historical [facility], [address] Rosalba Carpio MD [address] [place] [address] [place] [address] Malignant Neoplasm of Breast (Female), Unspecified Site (CMS/HCC) Social History Tobacco Use Types Packs/Day Years Used Date Smoking Tobacco: Every Day Cigarettes 1 30 Alcohol Use Standard Drinks/Week Comments No 0 (1 standard drink = 0.6 oz pur e alcohol) Comments No Sex and Gender Information Value Date Recorded Sex Assigned at Not on file 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
== END 2025-04-02 13:16 | disposition home or self-care (01) ==
PROVIDERS: PCP Family Medicine; Visit Provider Obstetrics & Gynecology Gynecology
DX: R92.8 Other abnormal and inconclusive findings on diagnostic imaging of breast (principal)
CPT/HCPCS: 77062; 77066; G0279